=== PATIENT | male | born 1995 | race Caucasian/White ===

== ENCOUNTER 2017-04-21 02:23 | Emergency (ER) | payer OTHER ==
[~2017-04-21] VITALS: Ht 177.8 cm; Wt 72.1 kg
[2017-04-21 02:41] LABS: POINT-OF-CARE METER ID UU14100415
[2017-04-21 02:46] VITALS: BP 132/63
== END 2017-04-21 02:50 ==
LOC: EME 02:23
PROVIDERS: Emergency Medicine
DX: T40.991A Poisoning by other psychodysleptics [hallucinogens], accidental (unintentional), initial encounter (principal); H55.00 Unspecified nystagmus; Y92.149 Unspecified place in prison as the place of occurrence of the external cause; F16.10 Hallucinogen abuse, uncomplicated; Z72.0 Tobacco use
CPT/HCPCS: 82948; 99281; 99284